=== PATIENT | male | born 1975 | race Caucasian/White ===

== ENCOUNTER 2016-12-18 18:21 | Emergency (ER) | payer OTHER ==
[2016-12-18 18:34] VITALS: BP 131/73; TEMP 98; O2SAT 99
[2016-12-18] MEDS ORDERED: SULFA/TRIMETH 800/160 (DS) TAB 1 EA TAB PO ONE (18:36)
--- NOTE | 2016-12-18 18:38 | ED.PDOC ---
History of Present Illness - General Chief Complaint: Skin/Abrasion/Tear Stated Complaint: "SPIDER BITES TO RIGHT KNEE AND CHEST" Time Seen by Provider: 12/18/16 18:36 Source: patient Exam Limitations: no limitations - History of Present Illness Initial Comments: The patient is a 41-year-old male presenting in custody due to a few small areas of cellulitis on his scan including his right lower extremity and his abdomen. Each does appear to have a small punctate head. No fevers. He denies other areas of abscess formation. He has not had this problem before. Timing/Duration: 24 hours Severity: mild Improving Factors: nothing Worsening Factors: nothing Associated Symptoms: denies symptoms Allergies/Adverse Reactions: Allergies NO KNOWN ALLERGY Allergy (Unverified 12/18/16 18:30) Home Medications: Ambulatory Orders Sulfa/Trimeth 800/160 (Ds) Tab [Bactrim DS Tab] 1 ea PO BID #14 tab 12/18/16 Review of Systems - Review of Systems Constitutional: States: no symptoms reported EENTM: States: no symptoms reported Respiratory: States: no symptoms reported Cardiology: States: no symptoms reported Gastrointestinal/Abdominal: States: no symptoms reported Genitourinary: States: no symptoms reported Musculoskeletal: States: no symptoms reported Skin: States: see HPI Neurological: States: no symptoms reported Endocrine: States: no symptoms reported All other Systems: No Change from Baseline Past Medical History (General) - Patient Medical History Hx Seizures: No Hx Stroke: No Hx Dementia: No Hx Asthma: No Hx of COPD: No Hx Cardiac Disorders: No Hx Congestive Heart Failure: No Hx Pacemaker: No Hx Hypertension: No Hx Thyroid Disease: No Hx Diabetes: No Hx Gastroesophageal Reflux: No Hx Renal Disease: No Hx Cancer: No Hx of HIV: No Hx Hepatitis C: No Hx MRSA: No MRSA Source:: Wound Surgical History: no surgical history - Vaccination History Hx Tetanus, Diphtheria Vaccination: No Hx Influenza Vaccination: No Hx Pneumococcal Vaccination: No Immunizations Up to Date: No - Social History Hx Tobacco Use: No Hx Chewing Tobacco Use: No Hx Alcohol Use: No Hx Substance Use: No Hx Substance Use Treatment: No Hx Depression: No Feels Threatened In Home Enviroment: No Feels Threatened In a Relationship: No Hx Physical Abuse: No Hx Emotional Abuse: No Hx Suspected Abuse: No - Female History Patient is a Female of Child Bearing Age (10 -59 yrs old): No Patient : No Family Medical History - Family History Mother Family History: No Known Living Status: Unknown Physical Exam - Physical Exam General Appearance: Alert, Comfortable, No apparent distress Eye Exam: bilateral normal Ears, Nose, Throat: hearing grossly normal, normal pharynx Neck: full range of motion Respiratory: no respiratory distress, no accessory muscle use Cardiovascular/Chest: normal peripheral pulses, no edema Peripheral Pulses: radial,right: 2+, radial,left: 2+, dorsalis pedis,right: 2+, dorsalis pedis,left: 2+ Gastrointestinal/Abdominal: non tender - xcept around the area of cellulitis, soft Rectal Exam: deferred Extremity: normal range of motion, no pedal edema, normal capillary refill Neurologic: decision support analyst II-XII nml as tested, alert, normal mood/affect, oriented x 3 Skin Exam: normal color - except cellulitis on the right anterior distal thigh approximately 8 cm in diameter and a smaller area of 3 cm diameter cellulitis to the central abdomen. Both with pustular heads. Comments: Vital Signs - 24 hr 12/18/16 18:30 Temperature 98 F Pulse Rate [ 70 Left Radial] Respiratory 20 Rate Blood Pressure 131/73 [Left Arm] O2 Sat by Pulse 99 Oximetry Progress - Progress Progress: 12/18/16 18:38 the patient is a 41-year-old male presenting to the emergency room under custody secondary to 2 small areas of cellulitis. After cleaning the areas with alcohol swab an 18-gauge needle was used to unroof the pustules in the center areas. Only a very small amount of pus was obtained. The patient was given a dose of Bactrim here and will be placed on Bactrim twice daily for the next 7 days. He does need to wash the areas twice daily if possible with antibacterial soap and water. He needs to return to the emergency room for worsening of course. Departure - Departure Clinical Impression: Cellulitis Qualifiers: Site of cellulitis: unspecified site Qualified Code(s): L03.90 - Cellulitis, unspecified ICD-10 Supporting Text: leg and abdomen. Initial visit. Disposition: Discharge to Home or Self Care Condition: Fair Departure Forms: ED Discharge - Pt. Copy, Patient Portal Self Enrollment Instructions: DI for Cellulitis -- Adult Diet: regular diet Activity: increase activity as tolerated Prescriptions: Sulfa/Trimeth 800/160 (Ds) Tab [Bactrim DS Tab] 1 ea PO BID #14 tab Home Medications: Ambulatory Orders Sulfa/Trimeth 800/160 (Ds) Tab [Bactrim DS Tab] 1 ea PO BID #14 tab 12/18/16 Additional Instructions: the patient is a 41-year-old male presenting to the emergency room under custody secondary to 2 small areas of cellulitis. After cleaning the areas with alcohol swab an 18-gauge needle was used to unroof the pustules in the center areas. Only a very small amount of pus was obtained. The patient was given a dose of Bactrim here and will be placed on Bactrim twice daily for the next 7 days. He does need to wash the areas twice daily if possible with antibacterial soap and water. He needs to return to the emergency room for worsening of course.
== END 2016-12-18 18:56 | disposition home or self-care (01) ==
LOC: ER 18:21
DX: L03.115 Cellulitis of right lower limb (principal); L03.311 Cellulitis of abdominal wall

== ENCOUNTER → 2016-12-22 | Outpatient (CLI) | payer OTHER | END | disposition home or self-care (01) | LOC: YCFC.O 10:24 | DX: L03.115 Cellulitis of right lower limb (principal) ==